=== PATIENT | male | born 1985 | race Caucasian/White ===

== ENCOUNTER 2018-10-16 20:20 | Emergency (ER) | payer MEDICARE, MEDICAID ==
[~2018-10-16] VITALS: Ht 193 cm; Wt 99.8 kg
--- OUTSIDE RECORDS SUMMARY | 2018-10-16 20:26 | XMS REPORT ---
Author Author PRINCESS DE LEÓN [facility] DENTAL Address Unknown Care Team Providers Care Compensation And Hris Analyst Name Role Phone PRINCESS DE LEÓN Unavailable PROBLEMS Unknown Problems ALLERGIES Substance Reaction Event Type Date Status Penicillin V Potassium Unknown Drug Allergy Jul, Active SOCIAL HISTORY No smoking Hx information available PLAN OF CARE Activity Details Follow Up prn Reason:as needed VITAL SIGNS Blood pressure systolic 139 mmHg 2016-08-06 Blood pressure diastolic 80 mmHg 2016-08-06 MEDICATIONS Medication Instructions Dosage Frequency Start Date End Date Duration Status Depakote Active Stool Softener Active RESULTS No Results PROCEDURES Procedure Date Ordered Related Diagnosis Body Site LTD ORAL EVALUATION - PROBLEM FOCUS Aug 06, 2016 INTRAORL-PERIAPICAL 1 FILM [id number] Aug 06, 2016 IMMUNIZATIONS No Known Immunizations
--- OUTSIDE RECORDS SUMMARY | 2018-10-16 20:26 | XMS REPORT ---
Author Author RANI THOMSON Organization [employer] Address Unknown Phone Unavailable Care Team Providers Care Foil Cutter Name Role Phone RANI THOMSON CP Unavailable Allergies, Adverse Reactions, Alerts Substance Reaction Event Type Penicillin V Potassium Info Not Available Drug Allergy Problems Problem Type Condition Code Onset Dates Condition Status Assessment Encounter for dental examination Z01.20 Active Medications Medication Code System Code Instructions Start Date End Date Status Dosage Zyprexa [facility] [id number] not defined Oxandrin [facility] [id number] not defined Propranolol HCl [facility] [address]-02 not defined Lotus [facility] [address]-52 5-325 MG Orally every 6 hrs Jun 05, 2015 Jun 09, 2015 1 tablet as needed Stool Softener [facility] [address]-03 not defined Depakote [facility] [address]-01 not defined Procedures Procedure Coding System Code Date INTRAORL-PERIAPICAL 1 FILM [id number] CPT-4 D0220 Jun 05, 2015 BITEWING - SINGLE FILM CPT-4 D0270 Jun 05, 2015 LTD ORAL EVALUATION - PROBLEM FOCUS CPT-4 D0140 Jun 05, 2015 EXTRAC ERUPTED TOOTH/EXPOSED ROOT CPT-4 D7140 May 06, 2015 EXTRAC ERUPTED TOOTH/EXPOSED ROOT CPT-4 D7140 May 06, 2015 Vital Signs Date/Time: Jun 05, 2015 Blood Pressure Diastolic 82 mmHg Blood Pressure Systolic 123 mmHg Results No Known Results Summary Purpose [employer] Submission
--- OUTSIDE RECORDS SUMMARY | 2018-10-16 20:26 | XMS REPORT ---
Author ALEXIS Avalos [employer] Address Unknown Phone Unavailable Care Team Providers Care Roll Finisher Name Role Phone ALEXIS CASTELAN CP Unavailable Allergies, Adverse Reactions, Alerts Substance Reaction Event Type Penicillin V Potassium Info Not Available Drug Allergy Problems Problem Type Condition Code Onset Dates Condition Status Assessment Dental caries K02.9 Active Medications Medication Code System Code Instructions Start Date End Date Status Dosage Stool Softener [facility] [id number] not defined Depakote [facility] [address]-99 not defined Procedures Procedure Coding System Code Date EXTRAC ERUPTED TOOTH/EXPOSED ROOT CPT-4 D7140 Jun 03, 2016 Vital Signs Date/Time: Jun 03, 2016 Blood Pressure Diastolic 93 mmHg Blood Pressure Systolic 137 mmHg Results No Known Results Summary Purpose [employer] Submission
[2018-10-16 21:15] LABS: BASOPHILS % (AUTO) 0 % (0-10); EOSINOPHILS % (AUTO) 3 % (0-10); HEMATOCRIT 42 % (40-54); HEMOGLOBIN 13.5 G/DL (13.3-17.7); LYMPHOCYTES # (AUTO) 2.1 X 10^3 (1.0-4.0); LYMPHOCYTES % (AUTO) 27 % (12-44); MEAN CORPUSCULAR HEMOGLOBIN 29 PG (25-34); MEAN CORPUSCULAR HGB CONC 32 G/DL (32-36); MEAN CORPUSCULAR VOLUME 89 FL (80-99); MEAN PLATELET VOLUME 11.5 FL (7.4-10.4); MONOCYTES % (AUTO) 11 % (0-12); NEUTROPHILS # (AUTO) 4.6 X 10^3 (1.8-7.8); NEUTROPHILS % (AUTO) 59 % (42-75); PLATELET COUNT 269 10^3/uL (130-400); RED CELL DISTRIBUTION WIDTH 13.8 % (10.0-14.5)
[2018-10-16 21:16] LABS: EOSINOPHILS # (AUTO) 0.2 10^3/uL (0.0-0.3); MONOCYTES # (AUTO) 0.9 X 10^3 (0.0-1.0)
[2018-10-16] MEDS: NS IV 1000 ML 1,000 ML IV SCH ×2 (21:25→22:15)
[2018-10-16 21:26] LABS: CLARITY,URINE CLEAR; COLOR,URINE YELLOW
[2018-10-16 21:27] LABS: BILIRUBIN,URINE NEGATIVE (NEGATIVE); GLUCOSE, URINE (UA) NEGATIVE (NEGATIVE); KETONES,URINE NEGATIVE (NEGATIVE); LEUKOCYTE ESTERASE ,URINE NEGATIVE (NEGATIVE); NITRITE,URINE NEGATIVE (NEGATIVE); PH,URINE 7.5 (5-9); PROTEIN,URINE NEGATIVE (NEGATIVE); UROBILINOGEN,URINE 0.2 MG/DL (NORMAL)
--- NOTE | 2018-10-16 21:30 | Diagnostic Imaging Report ---
INDICATION: Lightheadedness. Dizziness. COMPARISON: None FINDINGS: Single frontal view of the chest demonstrates normal heart size and pulmonary vascularity. The lungs are well aerated and clear. No large pleural effusion or pneumothorax is seen. The visualized osseous structures show no acute abnormalities. IMPRESSION: 1. No acute cardiopulmonary process. Dictated by: Dictated on workstation # [id number]
[2018-10-16 22:03] LABS: ALBUMIN 4.4 GM/DL (3.2-4.5); BILIRUBIN,TOTAL 0.3 MG/DL (0.1-1.0); CREATININE SERUM 1.6 MG/DL (0.60-1.30); POTASSIUM 3.9 MMOL/L (3.6-5.0); TOTAL PROTEIN 7.9 GM/DL (6.4-8.2)
[2018-10-16] MEDS ORDERED: ATOR20TA66 (22:07)
[2018-10-16] MEDS ORDERED: SIMV40TA4 (22:07)
[2018-10-16] MEDS ORDERED: OLAN10TA19 (22:07)
[2018-10-16] MEDS ORDERED: TAMS0.4C2 (22:07)
[2018-10-16] MEDS ORDERED: NF-SOLIF5T (22:07)
[2018-10-16] MEDS ORDERED: PROP60TA17 (22:07)
[2018-10-16] MEDS ORDERED: VENL50TA2 (22:07)
[2018-10-16] MEDS ORDERED: DIVA500T15 (22:07)
[2018-10-16] MEDS ORDERED: POLY238P32 (22:07)
[2018-10-16] MEDS ORDERED: OLAN10TA3 (22:07)
[2018-10-16] MEDS ORDERED: TROS20TA3 (22:07)
[2018-10-16] MEDS ORDERED: [UNRECOGNIZED DRUG - CODE] (22:07)
[2018-10-16] MEDS ORDERED: METF-397 (22:07)
[2018-10-16] MEDS ORDERED: LEVO75TA6 (22:07)
[2018-10-16] MEDS ORDERED: OMEP20CA12 (22:07)
[2018-10-16 22:30] VITALS: BP 167/95
[2018-10-16 22:45] VITALS: BP 147/99
[2018-10-16 23:00] VITALS: BP 162/106
[2018-10-16 23:19] VITALS: BP 139/102
--- NOTE | 2018-10-17 08:07 | ED General ---
General Chief Complaint: Altered Mental Status Stated Complaint: DIABETIC,LETHARGIC Nursing Triage Note: LETHARGIC WITH SYNCOPAL EPISODE LASTING A FEW MINUTES. C/O LIGHTHEADED AND DIZZNESS STARTED LAST NIGHT. Nursing Sepsis Screen: No Definite Risk Source of Information: Patient, Caregiver Exam Limitations: No Limitations History of Present Illness Date Seen by Provider: Oct 16, 2018 Time Seen by Provider: 21:00 Initial Comments 33-year-old male with history of mental retardation and petit mal seizure disorder who presents with 2 witnessed unresponsive episodes. Patient reports lightheaded and dizzy prior to episodes. No seizure-like activity witnessed. No falls, injuries, no chest pain palpitations shortness breath. She did not bite left tongue or have incontinence. Return to baseline mental status. No missed seizure medications. Patient is type type II diabetic, blood sugars are controlled. No other acute symptoms or complaints. History obtained from the patient the patient's guardian. Timing/Duration: 1/2 Hour Associated Systoms: Denies Symptoms Allergies and Home Medications Allergies Coded Allergies: penicillin G (Verified Allergy, Unknown, RASH, 10/16/18) Patient Home Medication List Home Medication List Reviewed: Yes Review of Systems Review of Systems Constitutional: no symptoms reported, dizziness EENTM: no symptoms reported Respiratory: no symptoms reported Cardiovascular: no symptoms reported Gastrointestinal: no symptoms reported Genitourinary: no symptoms reported Musculoskeletal: no symptoms reported Skin: no symptoms reported Psychiatric/Neurological: Seizure Hematologic/Lymphatic: No Symptoms Reported Immunological/Allergic: no symptoms reported Past [id number] Hx Patient Social History Alcohol Use: Denies Use Recreational Drug Use: No Smoking Status: Never a Smoker 2nd Hand Smoke Exposure: No Recent Foreign Travel: No Contact w/Someone Who Travel: No Recent Infectious Disease Expo: No Recent Hopitalizations: No Physical Abuse: No Sexual Abuse: No Mistreated: No Fear: No Immunizations Up To Date Tetanus Booster (TDap): Unknown Seasonal Allergies Seasonal Allergies: No Past Medical History Surgeries: Yes (HERNIA REPAIR) Joint Replacement Respiratory: No Cardiac: No Neurological: Yes Seizure Disorder HIV/AIDS: No Genitourinary: Yes (INCONTINENCE) Chronic Constipation Musculoskeletal: No Endocrine: Yes Diabetes, Non-Insulin dep Are Your Blood Sugars Over 250: No HEENT: No Cancer: No Psychosocial: Yes Anxiety, Bipolar, Depression Recent Skin Changes Blood Disorders: No Physical Exam Vital Signs Vital Signs - First Documented 10/16/18 20:41 Temp 98.3 Pulse 112 Resp 16 B/P (MAP) 120/81 (94) Pulse Ox 95 O2 Delivery Room Air Capillary Refill : Less Than 3 Seconds Height, Weight, BMI Height: 6'4.00" Weight: 220lbs. oz. 99.448564ht; BMI Method:Actual General Appearance: No Apparent Distress, WD/WN, Anxious Eyes: Bilateral Eye Normal Inspection, Bilateral Eye PERRL, Bilateral Eye EOMI HEENT: PERRL/EOMI, TMs Normal, Normal ENT Inspection, Pharynx Normal Neck: Full Range of Motion, Normal Inspection, Non Tender, Supple Respiratory: Chest Non Tender, Lungs Clear, Normal Breath Sounds, No Accessory Muscle Use, No Respiratory Distress Cardiovascular: Regular Rate, Rhythm, No Edema, No Gallop, No JVD, No Murmur, Normal Peripheral Pulses Back: Normal Inspection, No CVA Tenderness, No Vertebral Tenderness Extremity: Normal Capillary Refill, Normal Inspection, Normal Range of Motion, Non Tender, No Calf Tenderness, No Pedal Edema Neurologic/Psychiatric: Alert, Oriented x3, No Motor/Sensory Deficits, Normal Mood/Affect Progress/Results/Core Measures Suspected Sepsis Recent Fever Within 48 Hours: No Infection Criteria Present: None New/Unexplained Altered Menta: No Sepsis Screen: No Definite Risk SIRS Temperature:98.5 Pulse: 91 Respiratory Rate: 16 Laboratory Tests 10/16/18 20:58: White Blood Count 8.0 Blood Pressure 139 /102 Mean: 114 Laboratory Tests 10/16/18 20:58: Creatinine 1.60H, Platelet Count 269, Total Bilirubin 0.3 Results/Orders Lab Results Laboratory Tests Test 10/16/18 20:58 10/16/18 21:15 Range/Units White Blood Count 8.0 4.3-11.0 10^3/uL Red Blood Count 4.72 4.35-5.85 10^6/uL Hemoglobin 13.5 13.3-17.7 G/DL Hematocrit 42 40-54 % Mean Corpuscular Volume 89 80-99 FL Mean Corpuscular Hemoglobin 29 25-34 PG Mean Corpuscular Hemoglobin Concent 32 32-36 G/DL Red Cell Distribution Width 13.8 10.0-14.5 % Platelet Count 269 130-400 10^3/uL Mean Platelet Volume 11.5 H 7.4-10.4 FL Neutrophils (%) (Auto) 59 42-75 % Lymphocytes (%) (Auto) 27 12-44 % Monocytes (%) (Auto) 11 0-12 % Eosinophils (%) (Auto) 3 0-10 % Basophils (%) (Auto) 0 0-10 % Neutrophils # (Auto) 4.6 1.8-7.8 X 10^3 Lymphocytes # (Auto) 2.1 1.0-4.0 X 10^3 Monocytes # (Auto) 0.9 0.0-1.0 X 10^3 Eosinophils # (Auto) 0.2 0.0-0.3 10^3/uL Basophils # (Auto) 0.0 0.0-0.1 10^3/uL Sodium Level 137 135-145 MMOL/L Potassium Level 3.9 3.6-5.0 MMOL/L Chloride Level 95 L 98-107 MMOL/L Carbon Dioxide Level 23 21-32 MMOL/L Anion Gap 19 H 5-14 MMOL/L Blood Urea Nitrogen 16 7-18 MG/DL Creatinine 1.60 H 0.60-1.30 MG/DL Estimat Glomerular Filtration Rate 50 BUN/Creatinine Ratio 10 Glucose Level 150 H 70-105 MG/DL Calcium Level 10.0 8.5-10.1 MG/DL Corrected Calcium 9.7 8.5-10.1 MG/DL Total Bilirubin 0.3 0.1-1.0 MG/DL Aspartate Amino Transf (AST/SGOT) 16 5-34 U/L Alanine Aminotransferase (ALT/SGPT) 20 0-55 U/L Alkaline Phosphatase 69 40-136 U/L Total Protein 7.9 6.4-8.2 GM/DL Albumin 4.4 3.2-4.5 GM/DL Urine Color YELLOW Urine Clarity CLEAR Urine pH 7.5 5-9 Urine Specific [place] 1.010 L 1.016-1.022 Urine Protein NEGATIVE NEGATIVE Urine Glucose (UA) NEGATIVE NEGATIVE Urine Ketones NEGATIVE NEGATIVE Urine Nitrite NEGATIVE NEGATIVE Urine Bilirubin NEGATIVE NEGATIVE Urine Urobilinogen 0.2 NORMAL MG/DL Urine Leukocyte Esterase NEGATIVE NEGATIVE Urine RBC (Auto) NEGATIVE NEGATIVE My Orders Orders - SELENE SAMAYOA DO Cbc With Automated Diff (10/16/18 20:40) Comprehensive Metabolic Panel (10/16/18 20:40) Urinalysis Dipstick Only (10/16/18 20:40) Ekg Tracing (10/16/18 20:40) Chest 1 View Ap/Pa Only (10/16/18 20:40) Glucose (10/16/18 20:40) Ns Iv 1000 Ml (Sodium Chloride 0.9%) (10/16/18 21:00) Valproic Acid (10/16/18 21:31) Vital Signs/I&O 10/16/18 10/16/18 10/16/18 10/16/18 20:41 22:30 22:45 23:00 Temp 98.3 Pulse 112 97 91 92 Resp 16 16 B/P (MAP) 120/81 (94) 167/95 (119) 147/99 (115) 162/106 (124) Pulse Ox 95 97 94 92 O2 Delivery Room Air Room Air Room Air 10/16/18 23:19 Temp 98.5 Pulse 91 Resp 16 B/P (MAP) 139/102 (114) Pulse Ox 92 10/17/18 00:00 Intake Total 1800 ml Balance 1800 ml Capillary Refill : Less Than 3 Seconds Blood Pressure Mean: 114 Point of Care Testing Finger Stick Blood Glucose: 125 Progress Note : Time: 22:00 Progress Note Patient return to baseline mental status prior to ED arrival. Etiology is not entirely clear however patient does have histories seizures is likely Apis expiration for his symptoms. Lab work otherwise reassuring. IV fluids given treatment of dizziness. Recommend follow up with PCP to review lab abnormality and valproic acid level which is signed out. Return precautions reviewed. Patient family verbalized understanding. Discharge instructions prior to departure ECG Initial ECG Impression Date: Oct 16, 2018 Initial ECG Impression Time: 22:00 Initial ECG Rate: 100 (Normal sinus rhythm, no acute ST T wave changes.) Departure Impression Primary Impression: Breakthrough seizure Disposition: 01 HOME, SELF-CARE Condition: Improved Departure-Patient Inst. Patient Instructions: Seizures, Adult (DC) Add. Discharge Instructions: Dre was evaluated in the emergency department for loss of consciousness. EKG , labs and imaging studies were performed. His presentation is consistent with seizure episodes. Please take extra dose of Depakote upon returning home and contact PCPs office tomorrow afternoon for Depakote level and for recommendations of any medication adjustments. All discharge instructions reviewed with patient and/or family. Voiced understanding. SELENE SAMAYOA DO Oct 17, 2018 08:07
== END 2018-10-16 23:19 | disposition home or self-care (01) ==
LOC: EDUNIT# 20:20 → ER FS 20:24
DX: G40.909 Epilepsy, unspecified, not intractable, without status epilepticus (principal); E11.9 Type 2 diabetes mellitus without complications; F41.9 Anxiety disorder, unspecified; F31.9 Bipolar disorder, unspecified; Z87.19 Personal history of other diseases of the digestive system; Z88.0 Allergy status to penicillin; Z98.890 Other specified postprocedural states
CPT/HCPCS: 36415; 71045; 80053; 80164; 81002; 82962; 85025; 93005; 96360; 96361